=== PATIENT | male | born 1970 | race Asian ===

== ENCOUNTER 2016-06-20 15:51 | Observation (INO) | payer OTHER ==
--- NOTE | 2016-06-20 16:02 | EDPHY ---
H & P Time Seen by Provider: 06/20/16 16:02 HPI/ROS: CHIEF COMPLAINT: [ ] HISTORY OF PRESENT ILLNESS: [Need 4: Location, Duration, Severity, Quality, Context, Timing Modifying Factors, Associated S&S] REVIEW OF SYSTEMS: A comprehensive 10 point review of systems is otherwise negative aside from elements mentioned in the history of present illness. Source: Patient Exam Limitations: No limitations - Physical Exam Exam: General Appearance: [Alert, no distress] Eyes: [Pupils equal and round no pallor or injection] ENT, Mouth: [Mucous membranes moist] Respiratory: [There are no retractions, lungs are clear to auscultation] Cardiovascular: [Regular rate and rhythm] Gastrointestinal: [Abdomen is soft and nontender, no masses, bowel sounds normal] Neurological: [A&O, normal motor function, normal sensory exam, normal cranial nerves] Skin: [Warm and dry, no rashes] Musculoskeletal: [Neck is supple nontender] Extremities: [symmetrical, full range of motion] Psychiatric: [Patient is oriented X 3, there is no agitation]
[2016-06-20] MEDS ORDERED: IPRATROPIUM/ALBUTEROL 3 ML DEYVIAL IH ONE (16:26)
[2016-06-20] MEDS ORDERED: methylPREDNISolone SOD SUCC 125 MG/2 ML VIAL IVP ONE (16:26)
[2016-06-20 16:34] LABS: % IMMATURE GRANULYOCYTES 0.9 % (0.0-1.1); ABSOLUTE IMMATURE GRANULOCYTES 0.08 10^3/uL (0.00-0.10); ABSOLUTE NRBC COUNT 0.09 10^3/uL (0-0.01); ADD DIFF? NO; ADD MORPH? NO; ADD SCAN? NO; ATYPICAL LYMPHOCYTE FLAG 10 (0-99); FRAGMENT RBC FLAG 0 (0-99); HEMATOCRIT 48.4 % (40.0-51.0); HEMOGLOBIN 16.5 g/dL (13.7-17.5); LEFT SHIFT FLG 10 (0-99); LIPEMIA HEMOLYSIS FLAG 90 (0-99); MEAN CELL HEMOGLOBIN 33.3 pg (27.9-34.1); MEAN CELL HEMOGLOBIN CONCENTR. 34.1 g/dL (32.4-36.7); MEAN CELL VOLUME 97.6 fL (81.5-99.8); MEAN PLATELET VOLUME 10.8 fL (8.7-11.7); PLATELET CLUMPS FLAG 0 (0-99); PLATELET COUNT 182 10^3/uL (150-400); RED BLOOD CELL COUNT 4.96 10^6/uL (4.40-6.38); RED CELL DISTRIBUTION WIDTH 14.1 % (11.5-15.2)
--- NOTE | 2016-06-20 16:38 | EDPHY ---
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 He traveled here last Thursday and then went to [place] on Thursday. He spent 3 days skiing and after the 3rd day became very dizzy, nauseous and headachy and short of breath. They are concerned about altitude sickness and return to [place] Th night. and Thursday he has felt slightly better but continues to feel short of breath. He denies having any history of cardiac disease. He denies having any leg pain or swelling. He is not a smoker. No wheezing or stridor. No hormones. No recent procedures. He was saturating in the 70s when he presented to the urgent care and was sent here. At triage she was saturating 85 % on room air. REVIEW OF SYSTEMS: Constitutional: denies: chills, fever, recent illness, recent injury EENTM: denies: blurred vision, double vision, nose congestion Respiratory: See HPI Cardiac: denies: chest pain, irregular heart rate, lightheadedness, palpitations Gastrointestinal/Abdominal: denies: abdominal pain, diarrhea, nausea, vomiting, blood streaked stools Genitourinary: denies: dysuria, frequency, hematuria, pain Musculoskeletal: denies: joint pain, muscle pain Skin: denies: lesions, rash, jaundice, bruising Neurological: denies: headache, numbness, paresthesia, tingling, dizziness, weakness Hematologic/Lymphatic: denies: blood clots, easy bleeding, easy bruising Immunologic/allergic: denies: HIV/AIDS, transplant EXAM: GENERAL: Well-appearing, well-nourished and in no acute distress. HEAD: Atraumatic, normocephalic. EYES: Pupils equal round and reactive to light, extraocular movements intact, sclera anicteric, conjunctiva are normal. ENT: TMs normal, nares patent, oropharynx clear without exudates. Moist mucous membranes. NECK: Normal range of motion, supple without lymphadenopathy or JVD. LUNGS: Bilateral crackles HEART: Regular rate and rhythm without murmurs, rubs or gallops. ABDOMEN: Soft, nontender, normoactive bowel sounds. No guarding, no rebound. No masses appreciated. BACK: No CVA tenderness, no spinal tenderness, step-offs or deformities EXTREMITIES: Normal range of motion, no pitting or edema. No clubbing or cyanosis. NEUROLOGICAL: Cranial nerves II through XII grossly intact. Normal speech, normal gait. 5/5 strength, normal movement in all extremities, normal sensation PSYCH: Normal mood, normal affect. SKIN: Warm, dry, normal turgor, no visible rashes or lesions. Source: Patient Exam Limitations: No limitations - Personal History Current Tetanus Diphtheria and Acellular Pertussis (TDAP): Yes - Medical/Surgical History Hx Asthma: No Hx Chronic Respiratory Disease: No Hx Diabetes: No Hx Cardiac Disease: No Hx Renal Disease: No Hx Cirrhosis: No Hx Alcoholism: No Hx HIV/AIDS: No Hx Splenectomy or Spleen Trauma: No Other PMH: Denies - Family History Significant Family History: Hypertension - Social History Smoking Status: Never smoked Alcohol Use: Sober Drug Use: None Constitutional: Initial Vital Signs Temperature (C) 36.6 C 06/20/16 16:05 Heart Rate 77 06/20/16 16:05 Respiratory Rate 18 06/20/16 16:05 Blood Pressure 152/101 H 06/20/16 16:05 O2 Sat (%) 84 L 06/20/16 16:05 O2 Delivery Mode Room Air O2 (L/minute) 6 Allergies/Adverse Reactions: No Known Allergies Allergy (Unverified 06/20/16 16:05) Home Medications: Medication Instructions Recorded NK [No Known Home Meds] 06/20/16 Medical Decision Making - Diagnostics EKG Interpretation: An EKG obtained and was read and documented in trace view. Please see trace view for full reading and report. Sinus rhythm, right bundle branch block with LVH and repolarization abnormalities, no previous for comparison. Imaging: X-ray: chest x-ray was obtained. I viewed the images myself on the PACS system. My interpretation of the images is: Pulmonary edema. The radiologist interpretation is pending. ED Course/Re-evaluation: The patient has significant pulmonary Edema seen on chest x-ray and is hypoxic. Required administration of oxygen and admission to the hospital. I have given him Solu-Medrol as well. He received a DuoNeb which did not seem to help much. His EKG shows LVH with repolarization abnormality, the patient has never had an EKG previously. 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 He denies chest pain. 1st troponin is negative. D-dimer negative. Discussed the case with Dr. Lynette Sullivan who will admit to medical service. Dr. Farias feels that his chest x-ray is consistent with high-altitude pulmonary edema or possibly viral pneumonia. No cardiomegaly. 5:30 p.m. I discussed the case with Dr. Marlena Sullivan who will admit to the medical floor. Differential Diagnosis: Partial list of the Differential diagnosis considered include but were not limited to; pulmonary edema, altitude sickness, viral pneumonia, influenza and although unlikely based on the history and physical exam, I also considered PE, pneumothorax. Critical Care Time: Critical care time spent by me, Dr. Greene exclusive with this patient was 35 minutes, exclusive of the PA time exclusive of procedures. The organ system that was at risk was pulmonary and I gave oxygen, steroids and albuterol as well as consultation to prevent worsening of the patient's condition - Data Points Laboratory Results: Laboratory Results 06/20/16 16:12 06/20/16 16:12 06/20/16 06/20/16 06/20/16 16:12 16:12 16:12 WBC RBC Hgb Hct MCV MCH MCHC RDW Plt Count MPV Neut % (Auto) Lymph % (Auto) [place] % (Auto) Eos % (Auto) Baso % (Auto) Nucleat RBC Rel Count Absolute Neuts (auto) Absolute Lymphs (auto) Absolute Monos (auto) Absolute Eos (auto) Absolute Basos (auto) Absolute Nucleated RBC Immature Gran % Immature Gran # D-Dimer < 0.27 ug/mLFEU ug/mLFEU (0.00-0.50) Sodium 139 mEq/L mEq/L (134-144) Potassium 4.3 mEq/L mEq/L (3.5-5.2) Chloride 104 mEq/L mEq/L (97-110) Carbon Dioxide 26 mEq/l mEq/l (22-31) Anion Gap 9 mEq/L mEq/L (8-16) BUN 22 mg/dL mg/dL (7-23) Creatinine 1.0 mg/dL mg/dL (0.7-1.3) Estimated GFR > 60 Glucose 103 mg/dL H mg/dL (70-100) Calcium 8.9 mg/dL mg/dL (8.5-10.4) Troponin I < 0.012 ng/mL ng/mL (0-0.034) NT-Pro-B Natriuret Pep 421 pg/mL H pg/mL (0-125) Influenza Typ A,B (DFA) NEGATIVE FOR FLU (NEGATIVE) 06/20/16 16:12 WBC 8.92 10^3/uL 10^3/uL (3.80-9.50) RBC 4.96 10^6/uL 10^6/uL (4.40-6.38) Hgb 16.5 g/dL g/dL (13.7-17.5) Hct 48.4 % % (40.0-51.0) MCV 97.6 fL fL (81.5-99.8) MCH 33.3 pg pg (27.9-34.1) MCHC 34.1 g/dL g/dL (32.4-36.7) RDW 14.1 % % (11.5-15.2) Plt Count 182 10^3/uL 10^3/uL (150-400) MPV 10.8 fL fL (8.7-11.7) Neut % (Auto) 71.9 % % (39.3-74.2) Lymph % (Auto) 14.5 % L % (15.0-45.0) [place] % (Auto) 9.2 % % (4.5-13.0) Eos % (Auto) 2.6 % % (0.6-7.6) Baso % (Auto) 0.9 % % (0.3-1.7) Nucleat RBC Rel Count 1.0 % H % (0.0-0.2) Absolute Neuts (auto) 6.42 10^3/uL 10^3/uL (1.70-6.50) Absolute Lymphs (auto) 1.29 10^3/uL 10^3/uL (1.00-3.00) Absolute Monos (auto) 0.82 10^3/uL H 10^3/uL (0.30-0.80) Absolute Eos (auto) 0.23 10^3/uL 10^3/uL (0.03-0.40) Absolute Basos (auto) 0.08 10^3/uL 10^3/uL (0.02-0.10) Absolute Nucleated RBC 0.09 10^3/uL H 10^3/uL (0-0.01) Immature Gran % 0.9 % % (0.0-1.1) Immature Gran # 0.08 10^3/uL 10^3/uL (0.00-0.10) D-Dimer Sodium Potassium Chloride Carbon Dioxide Anion Gap BUN Creatinine Estimated GFR Glucose Calcium Troponin I NT-Pro-B Natriuret Pep Influenza Typ A,B (DFA) Medications Given: Discontinued Medications Albuterol/Ipratropium (Duoneb) 3 ml IH EDNOW ONE Stop: 06/20/16 16:27 Last Admin: 06/20/16 16:41 Dose: 3 ml Methylprednisolone Sodium Succinate (Solu-Medrol) 125 mg IVP EDNOW ONE Stop: 06/20/16 16:27 Last Admin: 06/20/16 16:41 Dose: 125 mg Departure - Departure Disposition: [facility] Acute Clinical Impression: High altitude pulmonary edema Qualifiers: Encounter type: initial encounter Qualified Code(s): T70.29XA - Other effects of high altitude, initial encounter Condition: Fair
[2016-06-20 16:40] LABS: ANION GAP 9 mEq/L (8-16); CALCIUM 8.9 mg/dL (8.5-10.4); CARBON DIOXIDE 26 mEq/l (22-31); CHLORIDE 104 mEq/L (97-110); GLOMERULAR FILTRATION RATE > 60; GLUCOSE 103 mg/dL (70-100); POTASSIUM 4.3 mEq/L (3.5-5.2); SODIUM 139 mEq/L (134-144)
[2016-06-20 16:53] LABS: TROPONIN I < 0.012 ng/mL (0-0.034)
--- NOTE | 2016-06-20 17:02 | CPEKG ---
Heart Rate: 74 RR Interval: 811 P-R Interval: 164 QRSD Interval: 108 QT Interval: 416 QTC Interval: 462 P Clinton: 5 QRS Clinton: 71 T Wave Clinton: -12 EKG Severity - ABNORMAL ECG - EKG Impression: SINUS RHYTHM EKG Impression: INCOMPLETE RIGHT BUNDLE BRANCH BLOCK EKG Impression: LVH WITH SECONDARY REPOLARIZATION ABNORMALITY Electronically Signed By: Ramon Greene 20-Jun-2016 17:10:31
[2016-06-20] MEDS ORDERED: ONDANSETRON 4 MG/2 ML VIAL IVP PRN (18:46)
[2016-06-20] MEDS ORDERED: oxyCODONE IR 5 MG TAB PO PRN (18:46)
[2016-06-20] MEDS ORDERED: ACETAMINOPHEN 325 MG TAB PO PRN (18:46)
[2016-06-20] MEDS ORDERED: ONDANSETRON DISINTEGRATING 4 MG TAB PO PRN (18:46)
[2016-06-20] MEDS ORDERED: ALBUTEROL 3 ML DEYVIAL IH PRN (18:46)
--- NOTE | 2016-06-20 19:00 | PDGENHP ---
History and Physical - Chief Complaint cough, SOB - History of Present Illness 46 yo male with no medical problems presents to ED with cough, SOB and subjective fever. He is traveling from [place], visiting family, and went skiing in [place]. Upon arriving in 6 days ago, he felt a headache and some dizziness. Was able to ski a half day the following day, but continued to feel poorly and then developed a cough with expiratory wheezing sensation, along with subjective fever, which was associated with sweats and chills. He reports a productive cough. No sick contacts. No h/o heart of lung disease. 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 He came down to [place] from [place] last night and felt a bit improved. However, continued to have respiratory symptoms and presented to the ED where he is found to be mildly hypoxemic with an abnormal CXR. He is admitted to the hospital for further evaluation. 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 Lives in [place]. Review of Systems ROS: 10pt was reviewed & negative except for what was stated in HPI & below Physical Exam Temp Pulse Resp BP Pulse Ox 36.6 C 68 16 131/91 H 91 L 06/20/16 18:41 06/20/16 18:41 06/20/16 18:41 06/20/16 18:41 06/20/16 18:41 O2 (L/minute) 3 Constitutional: no apparent distress Eyes: PERRL Ears, Nose, Mouth, Throat: moist mucous membranes Cardiovascular: regular rate and rhythym, no murmur, rub, or gallop Respiratory: no respiratory distress, expiratory wheeze Gastrointestinal: normoactive bowel sounds, soft, non-tender abdomen Skin: warm Musculoskeletal: full muscle strength Neurologic: AAOx3 Psychiatric: interacting appropriately Lab Data & Imaging Review 06/20/16 16:12 06/20/16 16:12 WBC 8.92 10^3/uL (3.80-9.50) 06/20/16 16:12 RBC 4.96 10^6/uL (4.40-6.38) 06/20/16 16:12 Hgb 16.5 g/dL (13.7-17.5) 06/20/16 16:12 Hct 48.4 % (40.0-51.0) 06/20/16 16:12 MCV 97.6 fL (81.5-99.8) 06/20/16 16:12 MCH 33.3 pg (27.9-34.1) 06/20/16 16:12 MCHC 34.1 g/dL (32.4-36.7) 06/20/16 16:12 RDW 14.1 % (11.5-15.2) 06/20/16 16:12 Plt Count 182 10^3/uL (150-400) 06/20/16 16:12 MPV 10.8 fL (8.7-11.7) 06/20/16 16:12 Neut % (Auto) 71.9 % (39.3-74.2) 06/20/16 16:12 Lymph % (Auto) 14.5 % (15.0-45.0) L 06/20/16 16:12 [place] % (Auto) 9.2 % (4.5-13.0) 06/20/16 16:12 Eos % (Auto) 2.6 % (0.6-7.6) 06/20/16 16:12 Baso % (Auto) 0.9 % (0.3-1.7) 06/20/16 16:12 Nucleat RBC Rel Count 1.0 % (0.0-0.2) H 06/20/16 16:12 Absolute Neuts (auto) 6.42 10^3/uL (1.70-6.50) 06/20/16 16:12 Absolute Lymphs (auto) 1.29 10^3/uL (1.00-3.00) 06/20/16 16:12 Absolute Monos (auto) 0.82 10^3/uL (0.30-0.80) H 06/20/16 16:12 Absolute Eos (auto) 0.23 10^3/uL (0.03-0.40) 06/20/16 16:12 Absolute Basos (auto) 0.08 10^3/uL (0.02-0.10) 06/20/16 16:12 Absolute Nucleated RBC 0.09 10^3/uL (0-0.01) H 06/20/16 16:12 Immature Gran % 0.9 % (0.0-1.1) 06/20/16 16:12 Immature Gran # 0.08 10^3/uL (0.00-0.10) 06/20/16 16:12 D-Dimer < 0.27 ug/mLFEU (0.00-0.50) 06/20/16 16:12 Sodium 139 mEq/L (134-144) 06/20/16 16:12 Potassium 4.3 mEq/L (3.5-5.2) 06/20/16 16:12 Chloride 104 mEq/L (97-110) 06/20/16 16:12 Carbon Dioxide 26 mEq/l (22-31) 06/20/16 16:12 Anion Gap 9 mEq/L (8-16) 06/20/16 16:12 BUN 22 mg/dL (7-23) 06/20/16 16:12 Creatinine 1.0 mg/dL (0.7-1.3) 06/20/16 16:12 Estimated GFR > 60 06/20/16 16:12 Glucose 103 mg/dL (70-100) H 06/20/16 16:12 Calcium 8.9 mg/dL (8.5-10.4) 06/20/16 16:12 Troponin I < 0.012 ng/mL (0-0.034) 06/20/16 16:12 NT-Pro-B Natriuret Pep 421 pg/mL (0-125) H 06/20/16 16:12 Influenza Typ A,B (DFA) NEGATIVE FOR FLU (NEGATIVE) 06/20/16 16:12 Assessment & Plan Assessment: Acute hypoxemic respiratory failure - requiring just 1 LPM O2. CXR shows diffuse b/l infiltrates. Afebrile here, no leukocytosis or signs of sepsis. DDx includes HAPE vs viral PNA process. Flu negative. He received IV Solumedrol in the ED. Given his expiratory wheezes, will continue oral Prednisone. Though this isn't specifically indicated for HAPE, he may have some reactive airway in setting of viral process. Will continue supplemental O2 , wean as able, PRN nebs, supportive care. Consider Pulmonary consult if not improving. Abnormal EKG with evidence of LVH and T wave inversions in lateral leads - No chest pain. Initial trop negative. 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 Will trend trop and obtain an echo in the am. Dispo - observation. If his hypoxemia persists, may need to change to inpt
[2016-06-21] MEDS ORDERED: predniSONE 20 MG TAB PO SCH (09:00)
--- NOTE | 2016-06-21 10:17 | HOSPPROG ---
Hospitalist Progress Note Assessment/Plan: 46 yo male with no medical problems presents to ED with cough, SOB and subjective fever. He is traveling from [place], visiting family, and went skiing in [place]. Upon arriving in 6 days ago, he felt a headache and some dizziness. Was able to ski a half day the following day, but continued to feel poorly and then developed a cough with expiratory wheezing sensation, along with subjective fever, which was associated with sweats and chills. He reports a productive cough. Acute hypoxemic respiratory failure - possibly r/t HAPE/ symptoms resolved when he came down in altitude CXR consistent with pulm edema Flu negative. On room air this morning if he travels to [place], recommending pre-treatment/ discussed with patient and family Abnormal EKG with evidence of LVH and T wave inversions in lateral leads - No chest pain. Both trop negative. Echo shows normal EF, no LVH Dispo - pending/ will see if stays stable on room air Subjective: Dathe is feeling better today. Objective: Vital Signs Temp Pulse Resp BP Pulse Ox 36.8 C 65 14 116/82 H 100 06/21/16 08:00 06/21/16 08:00 06/21/16 08:00 06/21/16 08:00 06/21/16 08:00 - Physical Exam Constitutional: no apparent distress, appears nourished Eyes: PERRL Ears, Nose, Mouth, Throat: hearing normal Cardiovascular: no murmur, rub, or gallop Respiratory: no respiratory distress, reduced air movement, other (few crackles at bases) Gastrointestinal: normoactive bowel sounds Skin: warm Musculoskeletal: full muscle strength, no muscle tenderness Neurologic: AAOx3 Psychiatric: interacting appropriately, not anxious ICD10 Worksheet Patient Problems: Problems Problem Status Onset High altitude pulmonary edema Acute
--- NOTE | 2016-06-21 10:35 | ECHO ---
[id number] + + [address] : : [place] [address] : : [phone] + + Adult Echocardiographic Report + -+ :Name: CARREROLulu Date: 06/21/2016 08:38 AM : : Hospital Admission Number: [id number] Location: 39 3: :: 1970 Gender: Male Height: 68 in : :Age: 46 yrs Race: Weight: 165 lb : :Reason For Study: LVH/t wave inversion/HAPE : : BSA: 1.9 meters2 : + -+ MMode/2D Measurements \T\ Calculations IVSd: 1.3 cm LVIDd: 4.9 cm FS: 46.8 % Ao root diam: LVPWd: 0.98 cm LVIDs: 2.6 cm EDV(Teich): 3.3 cm 111.0 ml LA dimension: ESV(Teich): 3.8 cm 24.4 ml EF(Teich): 78.1 % LVLd ap4: 8.4 cm SV(MOD-sp4): EDV(MOD-sp4): 71.0 ml 102.0 ml LVLs ap4: 7.0 cm ESV(MOD-sp4): 31.0 ml EF(MOD-sp4): 69.6 % Normal Measurement Values: + + :LVIDd (3.5-5.7cm) IVSd (0.6-1.1cm) LVPWd (0.6-1.1cm) Aortic Root (2.0-3.7cm)Left Atrium (1.5-4.0cm): :LV Vol(d) (76-115ml) LV Vol(s) (29-48ml) Ejec Fraction (50-65%)PV Clayton (0.6- 1.2m/s) TV Clayton (0.4-1.0m/s) : :MV E Clayton (0.8-1.0m/s)MV A Clayton (0.3-1.0m/s)LVOT Clayton (0.7-1.2m/s) Asc Ao Clayton ( 0.9-1.8m/s) : + + Doppler Measurements \T\ Calculations MV E max clayton: 89.3 cm/sec Ao V2 max: 122.2 cm/sec TR max clayton: 241.6 cm/sec MV A max clayton: 52.8 cm/sec Ao max P.0 mmHg TR max P.4 mmHg MV E/A: 1.7 RAP systole: 5.0 mmHg RVSP(TR): 28.4 mmHg Left Ventricle The left ventricle is normal in size. There is normal left ventricular wall thickness. Left ventricular systolic function is normal. Ejection Fraction = 65-70%. No regional wall motion abnormalities noted. Right Ventricle The right ventricle is normal in size and function. Atria The left atrial size is normal. Right atrial size is normal. A prominent eustachian valve is noted. Mitral Valve The mitral valve is normal in structure and function. There is no evidence of mitral valve prolapse. There is no mitral valve stenosis. There is trace mitral regurgitation. Tricuspid Valve Normal tricuspid valve. There is trace tricuspid regurgitation. Aortic Valve The aortic valve is trileaflet. The aortic valve opens well. Mildlly calcified NCC of the aortic valve. There is no aortic stenosis. Trace aortic regurgitation. Pulmonic Valve The pulmonic valve is not well visualized. There is no pulmonic valvular regurgitation. Great Vessels The aortic root is normal size. Pericardium/Pleural There is no pericardial effusion. Conclusion A complete two-dimensional transthoracic echocardiogram was performed (2D, M-mode, Doppler and color flow Doppler). (1) Left ventricular systolic ejection fraction was normal (65-70%) - normal wall motion (2) No left ventricular hypertrophy (3) No diastolic dysfunction (4) Normal right ventricular size and function (5) Normal atrial dimensions (6) Physiologic mitral regurgitation (7) Trileaflet aortic valve with mild sclerosis, but no stenosis. Physiologic insufficiency was noted (8) Physiologic tricuspid regurgitation - RVSP was within normal limits (9) Poor visualization of the pulmonic valve (no insufficiency by doppler) (10) No comparison echocardiograms Final Reading Physician: Campbell Vo signed on 06/21/2016 10:34 AM Ordering Physician: Marlena Sullivan Performed By: Kerry Ferris RDCS
[2016-06-21] MEDS ORDERED: ALBUTEROL 60 PUFFS/8 GM MDI IH PRN (10:53)
--- NOTE | 2016-06-21 11:00 | HOSPPROG ---
Hospitalist Progress Note Assessment/Plan: 46 yo male with no medical problems presents to ED with cough, SOB and subjective fever. He is traveling from [place], visiting family, and went skiing in [place]. Upon arriving in 6 days ago, he felt a headache and some dizziness. Was able to ski a half day the following day, but continued to feel poorly and then developed a cough with expiratory wheezing sensation, along with subjective fever, which was associated with sweats and chills. He reports a productive cough. No sick contacts. No h/o heart of lung disease. 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 He came down to [place] from [place] last night and felt a bit improved. However, continued to have respiratory symptoms and presented to the ED where he is found to be mildly hypoxemic with an abnormal CXR. He is admitted to the hospital for further evaluation. Acute hypoxemic respiratory failure - suspect r/t HAPE patient also had a significant headache which resolved when he cam down in elevation (HACE) possibly r/t HAPE/ symptoms resolved when he camd down in altitude CXR shows diffuse b/l infiltrates. Flu negative. On room air this morning Abnormal EKG with evidence of LVH and T wave inversions in lateral leads - No chest pain. Both trop negative. Will f/u echo Dispo - pending/ evaluate echo Objective: Vital Signs Temp Pulse Resp BP Pulse Ox 36.8 C 65 14 116/82 H 100 06/21/16 08:00 06/21/16 08:00 06/21/16 08:00 06/21/16 08:00 06/21/16 08:00 ICD10 Worksheet Patient Problems: Problems Problem Status Onset High altitude pulmonary edema Acute
[2016-06-21] MEDS ORDERED: FUROSEMIDE 20 MG/2 ML VIAL IVP ONE (11:33)
[2016-06-21 12:23] VITALS: RESP 16
--- NOTE | 2016-06-21 16:46 | GCON ---
[f rep st] CONSULTATION PULMONARY CONSULTATION DATE OF CONSULTATION: 06/21/2016 REFERRING PHYSICIAN: Rekha Pierson NP REASON FOR REFERRAL: Evaluation and management of pulmonary edema. HISTORY OF PRESENT ILLNESS: The patient is a 46-year-old gentleman with no prior history of respira tory symptoms or illnesses, who is visiting from [place]. He arrived 8 days ago, spent a day and [place] in [place], then drove up to [place] 6 days ago. After being there, he developed a bit of he adache and nausea. He skied for a day and a half, but continued to have the headache and nausea, an d then developed a sense of expiratory wheezing and chest congestion. After a day and a half of ski ing 5 days ago, he took the rest of the day off and that evening also had some fever as well as a fe eling of rattling congestion in his chest with a productive cough. He tried doing another day of sk iing, but his respiratory symptoms worsened, so he stopped. He felt quite poorly 2 nights ago while up at [place], and came down yesterday to [place]. He felt better upon arrival, but still had the chest symptoms, so he presented to the emergency department, where he was found to have mild hypoxemia and an abnormal chest x-ray. He was admitted to the hospital. His evaluation has includ ed a cardiac evaluation, which has been unremarkable. He has continued to have mild hypoxemia that corrects easily with oxygen. His chest symptoms are improved, but he still feels as though he canno t take a full breath. He denies any chest pain. PAST MEDICAL HISTORY: Unremarkable. MEDICATIONS: None. ALLERGIES: None. SOCIAL HISTORY: The patient has never smoked. 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 He lives in [place]. He had up to 3 alcohol beverages a night during the 1st few nights he was up at altitude, but has not been dr inking since. He usually drinks socially and not to excess. He has had no exposure to sick contact s. FAMILY HISTORY: Unremarkable. REVIEW OF SYSTEMS: A 10-point review of systems adds nothing to the history of present illness. PHYSICAL EXAMINATION: GENERAL: The patient is awake, alert, and in no acute distress. VITAL SIGNS : His blood pressure is 118/80 with a heart rate of 63. His oxygen saturations are 92% on oxygen a t 2 L/minute, and fall to 87% on room air at rest. HEENT: Normocephalic and atraumatic. No icteru s. NECK: No JVD. Trachea is midline. CHEST: He has some basilar rales. CARDIAC: Regular rate and rhythm without murmur. ABDOMEN: Soft, nontender. Bowel sounds are present. EXTREMITIES: No clubbing, cyanosis or edema. NEUROLOGIC: The patient is awake, alert, and grossly neurologically i ntact. He has no focal weakness. LABORATORY: CBC and chemistry group are normal. BNP is 421. D-dimer is less than 0.27. DFA for i nfluenza is negative. A chest x-ray shows bilateral alveolar infiltrates consistent with edema. Im ages reviewed. Echocardiogram shows normal ejection fraction and diastolic dysfunction without any significant valvular disease. His RVSP is estimated at 28 mmHg. ASSESSMENT: 1. High-altitude pulmonary edema. This diagnosis is suggested by the constellation of symptoms, th e typical chest x-ray finding and the elevated BNP in the absence of other apparent cardiac disease, all occurring in a time course that is consistent with high altitude pulmonary edema. He is sympto matically improved, but continues to have hypoxemia and likely still has edema. He has received a s mervin dose of Lasix. A viral pneumonia is also possible, but he has had negative serology and only had 1 brief subjective fever. Regardless, only supportive treatment will be indicated at this point for viral pneumonia. 2. Acute mountain sickness. The patient appears to have had this in addition to high altitude pulm onary edema, with symptoms of headache and nausea. These symptoms have largely resolved. RECOMMENDATIONS: I think the patient can be discharged, but should probably go home with oxygen giv en hypoxemia. Although this mild degree of hypoxemia in a healthy person would not typically necess itate oxygen, hypoxemia could prolong his pulmonary edema, so I think oxygen will be therapeutic in that sense. In addition, I think I would probably give him at least 1 more dose of Lasix, perhaps t omorrow, to help resolve the edema prior to his anticipated flight home in 3 days. If the patient returns to altitude, I gave him a series of recommendations including gradual ascensi on to altitude, minimizing exertion during the 1st day or 2, hydration and avoiding alcohol. In add ition, he can try specific therapies including Diamox 250 b.i.d. starting a half-day before ascensio n to altitudes higher than the [place] in conjunction with fluid/electrolyte solution to help mo re rapidly allow him to acclimate to altitude. For the high altitude pulmonary edema, he could take nifedipine 10 mg 3 times daily and Serevent twice daily upon arriving at higher altitude. Addition ally, he could benefit from using oxygen if he is going to be doing exertion at high altitude. This could be in the form of a concentrator at home to be used as needed during the day and with sleep. /[id number]/MODL
[2016-06-21 19:36] VITALS: BP 119/77; PULSE 65; TEMP 98.4; O2SAT 91
--- NOTE | 2016-06-22 09:02 | GDS ---
[f rep st] DISCHARGE SUMMARY DISCHARGE DIAGNOSES: 1. High altitude pulmonary edema. 2. High altitude sickness. 3. Acute hypoxemic respiratory failure. 4. Abnormal EKG. HISTORY OF PRESENT ILLNESS: Briefly, the patient is a 46-year-old gentleman with no significant his tory. He is here visiting from the [place] area. He arrived approximately 8 days ago, spent a day a nd a half in [place], and then drove to [place]. He started developing a bit of a headache and nausea. He skied for a day and a half, but continued to have a headache and nausea, and then develo ped significant chest congestion with associated wheezing. He tried doing another day of skiing, bu t his symptoms worsened so he stopped. He felt quite poorly at [place]. When he came down to [facility], he started to feel better. He still continued to have some shortness of breath. He came to the emergency room and had a chest x-ray performed that noted consistent with high altitu de pulmonary edema. He improved throughout his stay. He was given a dose of IV Lasix. Recommendation was to stay over night and get another dose of Lasix today, but the patient felt well enough and was discharged last night. HOSPITAL COURSE: Per problem: 1. High-altitude pulmonary edema. Improved after getting Lasix. He is flu negative. 2. High altitude sickness. Recommendations by Dr. Arrington are detailed in his history. 3. Abnormal EKG with evidence of LVH and T-wave inversions in the lateral leads. Troponins are neg ative. His echo shows normal EF and no LVH. PENDING LABS AND TESTS: None. CONDITION: Stable. PHYSICAL EXAMINATION: VITAL SIGNS: Blood pressure 116/82, respiratory rate of 14, pulse 65, temper ature is 36.8 Celsius, O2 sats on 2 L 92%. DISCHARGE INSTRUCTIONS: 1. Stay well-hydrated when he travels to a high altitude. 2. He can try therapies including Diamox a half day before he ascends to altitudes in the [facility] area if he returns. 3. Consider nicardipine 3 times a day for high altitude pulmonary edema. He also might benefit fro m oxygen. /[id number]/MODL
== END 2016-06-21 22:15 | disposition home or self-care (01) ==
LOC: F3E 18:21 → INTOOBSV 06-21 15:31 → OBSVTOIN 06-21 15:31
PROVIDERS: ADMIT Hospitalist; ATTEND Hospitalist
DX: T70.29XA Other effects of high altitude, initial encounter (principal); J96.01 Acute respiratory failure with hypoxia; R94.31 Abnormal electrocardiogram [ECG] [EKG]
CPT/HCPCS: 71020; 93005; 93306; 96374; 99291; G0378